=== PATIENT | female | born 1950 | race Caucasian/White ===

== ENCOUNTER → 2020-02-05 15:46 | Outpatient (CLI) | payer MEDICARE, SELFPAY ==
--- NOTE | 2020-02-05 15:54 | VDLE_ITS ---
Reason For Study: PAIN RIGHT LEFT CFV is compressible, spontaneous, phasic, GSV is normal. competent and demonstrates normal CFV is compressible, spontaneous, phasic, augmentation. competent, and demonstrates normal Procedure augmentation. Exam performed in department. FV is compressible, spontaneous, phasic, A preliminary report was called and/or faxed competent and demonstrates normal to [facility]. augmentation. Pt was directed to leave and follow up with POP V is compressible, spontaneous, phasic, PCP (Dr Ubaldo Shields). competent and demonstrates normal augmentation. T/P Trunk is compressible. LT PTV is DILATED and NONCOMPRESSIBLE from the proximal to distal portion of the vessel. LT PEROV is DILATED and NONCOMPRESSIBLE from the proximal to distal portion of the vessel. Interpretation Summary Acute deep vein thrombosis is noted in the left posterior tibial vein. Acute deep vein thrombosis is noted in the left peroneal vein. The remainder of the left lower extremity deep venous system is patent and compressible. Valvular competence appears intact within the proximal deep venous system on the left . The left great saphenous vein appears patent and compressible segmentally. Ordering Physician: Shashank Shields Referring Physician: UBALDO SHIELDS Performed By: Caro Colon, AMEYA, RVT
== END ==
PROVIDERS: PCP Family Medicine; Referring Provider Specialist; Visit Provider Specialist
DX: M79.662 Pain in left lower leg (principal)
CPT/HCPCS: 93971